=== PATIENT | male | born 1995 | race Two or more races ===

== ENCOUNTER 2017-11-05 11:30 | Emergency (ER) | payer OTHER ==
[~2017-11-05] VITALS: Ht 182.9 cm; Wt 57.8 kg
[~2017-11-05 11:30] MED LIST: NAPROSYN500 MG PO; no home med
[2017-11-05 13:23] VITALS: BP 116/60
== END 2017-11-05 13:24 | disposition home or self-care (01) ==
LOC: EME 11:30
DX: M25.562 Pain in left knee (principal); M25.462 Effusion, left knee; Z88.1 Allergy status to other antibiotic agents
CPT/HCPCS: 73564; 99281; 99283